=== PATIENT | female | born 1965 | race Caucasian/White ===

== ENCOUNTER 2017-01-20 19:44 | Emergency (ER) | payer OTHER ==
[~2017-01-20] VITALS: Ht 167.6 cm; Wt 59.7 kg
[~2017-01-20 19:44] MED LIST: ADDERALL10 MG PO; ALLEGRA30 MG PO; DESYREL 150 MG150 MG PO; LAMICTAL200 MG PO; LEXAPRO10 MG PO; LONG ACTING NA120 MG PO; MECLIZINE HCL12.5 M1 PO; MECLIZINE HCL12.5 MG PO; MOBIC7.5 MG PO; NAPROSYN375 MG PO; NORCO 5/3251 TABLET PO; OXAYDO5 MG PO; PERCOCET 7.51 TABLET PO; SYNTHROID150 MCG PO
[2017-01-20 20:12] LABS: HEMATOCRIT 38.8 % (36.0-46.0); MCH 30.3 PG (29.0-34.0); MCV 91.7 FL (83-99); MEAN PLAT.VOLUME 9.8 uM^3 (9.5-12.4); PLATELET COUNT 298 K/uL (156-360); RBC DIS.WIDTH-CV 12.5 % (11.8-14.6); RBC DIS.WIDTH-SD 42.1 % (39-53); RED BLOOD COUNT 4.23 M/uL (3.80-5.20); WHITE BLOOD COUNT 7.8 K/uL (4.1-10.2)
[2017-01-20 20:23] LABS: CHLORIDE 106 mEq/L (99-109); POTASSIUM 3.5 mEq/L (3.7-5.4); SODIUM 142 mEq/L (136-147)
[2017-01-20 20:25] LABS: GLUCOSE 75 mg/dL (70-99)
[2017-01-20 20:26] LABS: ANION GAP 10 MEQ/L (2-14)
[2017-01-20 20:29] LABS: GFR ESTIMATE (CALCULATED) > 59 mL/min/; UREA NITROGEN (BUN) 11 mg/dL (9-23)
[2017-01-20 21:17] LABS: TROP-I INTERPRETATION NEGATIVE; TROPONIN-I < 0.01 ng/mL (0.0-0.30)
[2017-01-20 21:36] LABS: D-DIMER ELISA 0.67 mg/L FEU (< 0.57)
[2017-01-21 01:07] LABS: TROP-I INTERPRETATION NEGATIVE; TROPONIN-I < 0.01 ng/mL (0.0-0.30)
[2017-01-21] MEDS ORDERED: LEVAQUIN500 MG PO (01:47)
[2017-01-21] MEDS ORDERED: MOTRIN800 MG PO (01:47)
[2017-01-21 02:10] VITALS: BP 107/69
== END 2017-01-21 02:16 | disposition home or self-care (01) ==
LOC: EME 19:44
PROVIDERS: Emergency Medicine
DX: R07.89 Other chest pain (principal); R05 Cough; J32.9 Chronic sinusitis, unspecified; F17.200 Nicotine dependence, unspecified, uncomplicated
CPT/HCPCS: 71020; 71275; 80048; 84484; 85027; 85379; 93005; 99281; 99285; J7030

== ENCOUNTER 2017-06-24 21:03 | Emergency (ER) | payer OTHER ==
[~2017-06-24] VITALS: Ht 167.6 cm; Wt 61.7 kg
[~2017-06-24 21:03] MED LIST changes: +LEVAQUIN500 MG PO; +MOTRIN800 MG PO
[2017-06-24] MEDS ORDERED: ZOFRAN ODT4 MG PO (22:13)
[2017-06-24 22:26] VITALS: BP 112/77
== END 2017-06-24 22:31 | disposition home or self-care (01) ==
LOC: EME 21:03
DX: S06.0X0A Concussion without loss of consciousness, initial encounter (principal); W50.0XXA Accidental hit or strike by another person, initial encounter
CPT/HCPCS: 99281; 99283; J1885

== ENCOUNTER 2017-10-15 08:18 | Emergency (ER) | payer OTHER ==
[~2017-10-15] VITALS: Ht 167.6 cm; Wt 60.8 kg
[~2017-10-15 08:18] MED LIST changes: +ZOFRAN ODT4 MG PO
[2017-10-15 08:40] LABS: HEMATOCRIT 40.9 % (36.0-46.0); HEMOGLOBIN 13.9 G/DL (11.9-15.5); MCH 30.4 PG (29.0-34.0); MCV 89.5 FL (83-99); PLATELET COUNT 234 K/uL (156-360); RBC DIS.WIDTH-CV 11.9 % (11.8-14.6); RBC DIS.WIDTH-SD 39.6 % (39-53); RED BLOOD COUNT 4.57 M/uL (3.80-5.20)
[2017-10-15 08:58] LABS: CHLORIDE 105 mEq/L (99-109); POTASSIUM 3.8 mEq/L (3.7-5.4); SODIUM 137 mEq/L (136-147)
[2017-10-15 08:59] LABS: GLUCOSE 106 mg/dL (70-99)
[2017-10-15 09:00] LABS: TROP-I INTERPRETATION NEGATIVE; TROPONIN-I < 0.01 ng/mL (0.0-0.30)
[2017-10-15 09:03] LABS: CREATININE 0.8 mg/dL (0.6-1.3); GFR ESTIMATE (CALCULATED) > 59 mL/min/
[2017-10-15 09:04] LABS: UREA NITROGEN (BUN) 15 mg/dL (9-23)
[2017-10-15] MEDS ORDERED: TAMIFLU75 MG PO (09:56)
[2017-10-15 11:33] VITALS: BP 101/72
== END 2017-10-15 11:34 | disposition home or self-care (01) ==
LOC: EME 08:18
DX: R07.9 Chest pain, unspecified (principal); R50.9 Fever, unspecified; R00.2 Palpitations; R05 Cough; R09.89 Other specified symptoms and signs involving the circulatory and respiratory systems; R53.83 Other fatigue; R06.00 Dyspnea, unspecified; F32.9 Major depressive disorder, single episode, unspecified; Z87.442 Personal history of urinary calculi; G43.909 Migraine, unspecified, not intractable, without status migrainosus; Z88.1 Allergy status to other antibiotic agents; F17.200 Nicotine dependence, unspecified, uncomplicated
CPT/HCPCS: 71046; 80048; 84484; 85027; 93005; 99281; 99284